=== PATIENT | female | born 1990 | race Caucasian/White ===

== ENCOUNTER 2019-11-10 17:25 | Emergency (ER) | END 2019-11-11 03:43 | disposition left against medical advice (07) | LOC: ER 17:25 | DX: Z53.21 Procedure and treatment not carried out due to patient leaving prior to being seen by health care provider (principal) ==

== ENCOUNTER 2019-12-02 09:24 | Emergency (ER) | payer OTHER ==
[2019-12-02] MEDS ORDERED: ASPIRIN 81 MG TABLET, CHEWABLE PO ONE (09:37)
--- NOTE | 2019-12-02 09:37 | ER Document Report ---
ED Medical Screen (RME) - General Chief Complaint: Anxiety Stated Complaint: PANIC ATTACK/ANXIETY Time Seen by Provider: 12/02/19 09:34 Mode of Arrival: Medic Information source: Patient Notes: 29-year-old female presented to ED for complaint of possible anxiety. She states she he was feeling palpitations, sweating, numbness to the lips, very short of breath. She states it is possibly her anxiety but she is not sure. He states when she could not breathe and her chest became very tight she decided to call the EMS and come to the emergency room. She states she has felt like this before. She states they went over test she was in the hospital for while in [place]. 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 Patient is alert oriented respirations regular nonlabored she is very upset at this time. I have greeted and performed a rapid initial assessment of this patient. A comprehensive ED assessment and evaluation of the patient, analysis of test results and completion of medical decision making process will be conducted by an additional ED providers.
--- NOTE | 2019-12-02 10:22 | RADIOLOGY REPORT (SQ) ---
EXAM DESCRIPTION: CHEST 2 VIEWS COMPLETED DATE/TIME: 12/02/2019 10:12 am REASON FOR STUDY: chest pain short of breath palpitation COMPARISON: None. EXAM PARAMETERS: NUMBER OF VIEWS: two views TECHNIQUE: Digital Frontal and Lateral radiographic views of the chest acquired. RADIATION DOSE: NA LIMITATIONS: none FINDINGS: LUNGS AND PLEURA: No opacities, masses or pneumothorax. No pleural effusion. MEDIASTINUM AND HILAR STRUCTURES: No masses or contour abnormalities. HEART AND VASCULAR STRUCTURES: Heart normal size. No evidence for failure. BONES: No acute findings. HARDWARE: None in the chest. OTHER: No other significant finding. IMPRESSION: NO ACUTE RADIOGRAPHIC FINDING IN THE CHEST. TECHNICAL DOCUMENTATION: JOB ID: [id number] [employer]- All Rights Reserved Reading location - IP/workstation name: [email or web address]
[2019-12-02 10:26] LABS: ABSOLUTE LYMPHOCYTES (AUTO) 1.9 10^3/uL (0.5-4.7); ABSOLUTE MONOCYTES (AUTO) 0.4 10^3/uL (0.1-1.4); APPEARANCE,URINE CLEAR; BASOPHILS % (AUTO) 0.4 % (0-2); BILIRUBIN,URINE NEGATIVE (NEGATIVE); COLOR,URINE STRAW; EOSINOPHILS % (AUTO) 0.6 % (0-6); GLUCOSE, URINE NEGATIVE (NEGATIVE); HEMATOCRIT 46.2 % (36.0-47.0); HEMOGLOBIN 15.9 g/dL (12.0-15.5); KETONES,URINE NEGATIVE (NEGATIVE); LEUKOCYTE ESTERASE,URINE NEGATIVE (NEGATIVE); LYMPHOCYTES % (AUTO) 22.2 % (13-45); MEAN CORPUSCULAR HGB CONC 34.4 g/dL (32.0-36.0); MEAN CORPUSCULAR VOLUME 93 fl (80-97); NITRITE,URINE NEGATIVE (NEGATIVE); PLATELET COUNT 234 10^3/uL (150-450); PROTEIN,URINE NEGATIVE (NEGATIVE); RED BLOOD COUNT 4.97 10^6/uL (3.72-5.28); RED CELL DISTRIBUTION WIDTH 12.6 % (11.5-14.0); SEGMENTED NEUTROPHILS % (AUTO) 71.8 % (42-78); TOTAL CELLS COUNTED % (AUTO) 100 %; URINE SPECIFIC GRAVITY 1.002; UROBILINOGEN,URINE NEGATIVE mg/dL (<2.0); WHITE BLOOD COUNT 8.3 10^3/uL (4.0-10.5)
[2019-12-02 10:55] LABS: ALBUMIN 4.6 g/dL (3.5-5.0); ALKALINE PHOSPHATASE 69 U/L (38-126); ANION GAP 7 (5-19); ASPARTATE AMINO TRANSFERASE 22 U/L (14-36); BILIRUBIN,TOTAL 0.4 mg/dL (0.2-1.3); BLOOD UREA NITROGEN 8 mg/dL (7-20); CALCIUM 9.9 mg/dL (8.4-10.2); CARBON DIOXIDE 26 mmol/L (22-30); CHLORIDE 107 mmol/L (98-107); GLUCOSE 89 mg/dL (75-110); POTASSIUM 4.4 mmol/L (3.6-5.0); TOTAL PROTEIN 7.3 g/dL (6.3-8.2)
--- NOTE | 2019-12-02 11:01 | ER Document Report ---
Entered by VALE SÁNCHEZ SCRIBE 12/02/19 1024 Acting as scribe for:STEVE FRAZIER MD ED General - General Chief Complaint: Chest Pain Stated Complaint: PANIC ATTACK/ANXIETY Time Seen by Provider: 12/02/19 09:34 Mode of Arrival: Medic Information source: Patient Notes: This 29 year old female patient with a history of anxiety and panic attacks presents to the ED today with complaints of a panic attack that occurred this morning prior to arrival. Patient states that she felt fine when she woke up this morning, but shortly after she started having increased anxiety. Patient states that her heart started racing and that she felt like she couldn't breathe, so she called for assistance. Patient reports associated palpitations, shortness of breath, diaphoresis, and numbness to her lips and fingers. Patient states that she was taking Valium and Celexa, but she ran out after she moved here from [place] in April 2019. Patient reports that her last normal menstrual cycle was 09/16/19 and that she had a miscarriage on 11/21/19. 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 Family History: Reviewed & Not Pertinent Patient has suicidal ideation: No Patient has homicidal ideation: No Psychiatric Medical History: Reports: Hx Anxiety Past Surgical History: Reports: Hx Breast Surgery - Augmentation in 2013 Review of Systems - Review of Systems Constitutional: See HPI, Diaphoresis EENT: See HPI, Other - Lip numbness Cardiovascular: Palpitations Respiratory: See HPI, Short of breath Gastrointestinal: No symptoms reported Genitourinary: No symptoms reported Female Genitourinary: Last menstrual period - 09/16/19, Other - Miscarriage 11/21/19 Musculoskeletal: See HPI, Other - Finger numbness Skin: No symptoms reported Hematologic/Lymphatic: No symptoms reported Neurological/Psychological: See HPI, Anxiety -: Yes All other systems reviewed and negative Physical Exam - Vital signs Vitals: Temp Pulse Resp BP Pulse Ox 98.0 F 91 20 119/65 97 12/02/19 09:52 12/02/19 09:52 12/02/19 09:52 12/02/19 09:52 12/02/19 09:52 Interpretation: Normal - General General appearance: Anxious - Mildly - HEENT Head: Normocephalic, Atraumatic Eyes: Normal Pupils: PERRL - Respiratory Respiratory status: No respiratory distress Chest status: Nontender Breath sounds: Normal Chest palpation: Normal - Cardiovascular Rhythm: Regular Heart sounds: Normal auscultation Murmur: No - Abdominal Inspection: Normal Distension: No distension Bowel sounds: Normal Tenderness: Nontender Organomegaly: No organomegaly - Back Back: Normal, Nontender - Extremities General upper extremity: Normal inspection General lower extremity: Normal inspection - Neurological Neuro grossly intact: Yes - Psychological Associated symptoms: Anxious - Mildly - Skin Skin Temperature: Warm Skin Moisture: Dry Skin Color: Normal Course - Vital Signs Vital signs: Temp Pulse Resp BP Pulse Ox 98.5 F 80 18 110/76 99 12/02/19 13:05 12/02/19 13:05 12/02/19 13:05 12/02/19 13:05 12/02/19 13:05 - Laboratory Result Diagrams: 12/02/19 10:04 12/02/19 10:04 Laboratory results interpreted by me: 12/02/19 12/02/19 12/02/19 10:04 10:04 10:04 Hgb 15.9 H Serum HCG, Qual POSITIVE H Beta HCG, Quant Urine Blood SMALL H 12/02/19 10:04 Hgb Serum HCG, Qual Beta HCG, Quant 44.47 H Urine Blood Discharge - Discharge Clinical Impression: Anxiety, Panic attack, Palpitations Condition: Stable Disposition: HOME, SELF-CARE Instructions: Anxiety ([facility]) Additional Instructions: Panic Attack: The cause of panic attacks is unknown. Symptoms can include chest pain, shortness of breath, palpitations, sweats, and a sense of smothering or impending doom. In time, the panic attacks can lead to generalized anxiety and phobias. Because the symptoms can mimic heart attack, pulmonary embolism, and other serious diseases, the physician has evaluated you for these conditions. There is no evidence of a serious problem. An acute panic attack usually goes away by itself without treatment. A severe attack can be treated with medicine to calm you. Long-term, antidepressant medicines may help prevent attacks. Counselling can also be very beneficial in dealing with panic attacks. Panic attacks are less likely if you are getting regular exercise, proper diet, and plenty of sleep. It's normal for panic attacks to cause many frightening symptoms. However, you should call or return if your symptoms change significantly or if you are worsening. Take the Celexa as prescribed. Drink plenty of fluids and get plenty of rest today. Follow-up with a local primary care provider to manage your anxiety and panic attacks. RETURN TO THE EMERGENCY ROOM IF ANY NEW OR WORSENING SYMPTOMS. Prescriptions: Citalopram Hydrobromide [Celexa 20 mg Tablet] 20 mg PO DAILY #30 tablet Scribe Attestation: 12/02/19 10:37 I personally performed the services described in the documentation, reviewed and edited the documentation which was dictated to the scribe in my presence, and it accurately records my words and actions. I personally performed the services described in the documentation, reviewed and edited the documentation which was dictated to the scribe in my presence, and it accurately records my words and actions.
[2019-12-02 13:05] VITALS: BP 110/76
--- NOTE | 2019-12-02 13:52 | EKG REPORT ---
SEVERITY:- NORMAL ECG - SINUS RHYTHM : Confirmed by: Jasen Puckett MD 02-Dec-2019 13:50:54
== END 2019-12-02 13:08 | disposition home or self-care (01) ==
LOC: ER 09:24
DX: R00.2 Palpitations (principal); F41.0 Panic disorder [episodic paroxysmal anxiety]; F41.9 Anxiety disorder, unspecified; R07.9 Chest pain, unspecified; R06.02 Shortness of breath; R61 Generalized hyperhidrosis; Z79.899 Other long term (current) drug therapy; F17.210 Nicotine dependence, cigarettes, uncomplicated
CPT/HCPCS: 36415; 71046; 80053; 81001; 83690; 84484; 84702; 84703; 85025; 93005; 93010; 99284